=== PATIENT | male | born 1965 | race Caucasian/White ===

== ENCOUNTER 2022-02-04 05:47 | Emergency (ER) | payer OTHER, SELFPAY ==
[2022-02-04] VITALS (8 sets, daily range): BP systolic 130–150; BP diastolic 78–92; PULSE 84–107; RESP 18–26; TEMP 36.1–36.9; O2SAT 92–98
--- NOTE | ~2022-02-04 | CT_ITS ---
EXAMINATION: CT abdomen pelvis w con DATE: 02/04/2022 06:41 INDICATION: Surgery complication. Weakness. Bleeding at surgical site. A illness, diaphoresis, nausea and vomiting, abdominal distention TECHNIQUE: Computed tomography (CT) of the abdomen and pelvis was performed with 100 CC Omnipaque 350 intravenous contrast. Automated exposure control and iterative reconstruction technique were employe d. Exam dose: 1647.78 mGy-cm total exam DLP. COMPARISON: 02/04/2022 portable AP chest FINDINGS: Bilateral lower lobe atelectasis. Normal heart size. No pericardial or pleural effusion. There is a moderately prominent amount of high density fluid around the liver and to a lesser extent around the spleen, in addition to the paracolic gutters, likely due to intraperitoneal hemorrhage. Hepatic steatosis. No hepatic, splenic, pancreatic, and adrenal space-occupying mass lesion. Occasion al renal cysts, measuring up to 2 cm on the right. No urinary tract calculus or hydroureteronephrosis . Urinary bladder is unremarkable. Mild prostate enlargement. Normal caliber of the abdominal aorta. No intraperitoneal or retroperitoneal or pelvic mass lesion or adenopathy. Small fat-containing hernias, left greater than right. Mild subcutaneous emphysema and 4.2 x 9.1 cm hematoma in the right anterolateral lower abdominal wall , with attenuation of same as that free fluid in the abdomen. Bowel sutures noted in the ileocecal area and rectosigmoid area. No bowel obstruction is evident. The re is mild intraperitoneal free air and mild subcutaneous emphysema of the abdominal wall, likely due to recent surgery. Diffuse idiopathic skeletal hyperostosis of the thoracic spine. Multilevel degenerative disc disease of the lumbar spine. IMPRESSION: Perihepatic, perisplenic and pericolic free fluid consistent with internal hemorrhage Minimal intraperitoneal free air, mild subcutaneous emphysema of the abdominal wall, likely postopera tive Approximately 4 x 9 cm hematoma of the lower anterior abdominal wall on the right Dr. Noonan telephoned the results on 02/04/2022 at 0835 hours to emergency room physician Dr. Day. Reviewed, dictated and finalized at [facility]. Reviewed, dictated and finalized at [facility]. IMPRESSION: Perihepatic, perisplenic and pericolic free fluid consistent with internal hemorrhage Minimal intraperitoneal free air, mild subcutaneous emphysema of the abdominal wall, likely postoperative Approximately 4 x 9 cm hematoma of the lower anterior abdominal wall on the rig ht Dr. Noonan telephoned the results on 02/04/2022 at 0835 hours to emergency room herberth Day.
--- NOTE | ~2022-02-04 | XR_ITS ---
XR chest 1V portable DATE: 02/04/2022 06:26 INDICATION: Surgery complications TECHNIQUE: Portable supine AP view on 02/04/2022 at 0619 hours COMPARISON: None FINDINGS: Right mid and bilateral lower lung infiltrate and/atelectasis. There is mild elevation of t he right leaf of diaphragm. Normal heart size. Minimal blunting of the costophrenic angles may indicate slight pleural effusions. No pneumothorax. IMPRESSION: Right mid and bilateral lower lung infiltrate and/or atelectasis Reviewed, dictated and finalized at [facility].
--- NOTE | 2022-02-04 05:45 | ECG_ITS ---
Measurements Intervals [place] Rate: 96 P: 27 HI: 128 QRS: 34 QRSD: 108 T: 37 QT: 366 QTc: 464 Interpretive Statements SINUS RHYTHM WITH OCCASIONAL VENTRICULAR PREMATURE COMPLEXES INCOMPLETE RIGHT BUNDLE BRANCH BLOCK NO PREVIOUS ECG AVAILABLE FOR COMPARISON Electronically Signed On 02-04-2022 14:45:05 CDT by Hudson Nguyen M.D.
--- NOTE | 2022-02-04 06:00 | PC.NURSE ---
Spoke to Marine, Manager Advanced ([facility] [phone]) regarding [facility] medical records. She provided me w/phone # and fax # for [facility] medical records. ( Opt1/FAX: [phone]). Spoke to Chitra and provided patient information for medical records and faxed the Release.
--- NOTE | 2022-02-04 06:11 | PC.NURSE ---
Rapid blood infusion started at 0610.
[2022-02-04 06:25] LABS: Basophils Percent Auto 0.1 % (0.2-1.2); Eosinophils Percent Auto 0.1 % (0-4.4); Hematocrit 34.2 % (42.0-52.0); Hemoglobin 11.4 g/dL (14.0-18.0); Immature Granulocyte Percent A 0.5 % (0-0.5); Lymphocytes Absolute Auto 2.18 K/mm3 (0.9-3.2); Lymphocytes Percent Auto 11.9 % (18.3-44.2); Mean Corpuscular HGB Conc 33.3 g/dl (32-36); Mean Corpuscular Hemoglobin 30.6 pg (26-34); Mean Corpuscular Volume 91.9 fl (80-100); Mean Platelet Volume 10.5 fl (7.4-10.4); Monocytes Percent Auto 5.7 % (2.6-8.5); Neutrophils Percent Auto 81.7 % (45.5-73.1); Platelet Count Result 344 k/mm3 (150-375); Red Blood Count 3.72 M/mm3 (4.6-6.20); White Blood Count 18.4 K/mm3 (4.5-10.0)
[2022-02-04 06:36] LABS: INR 1.2; Prothrombin Time 14.3 Seconds (11.1-14.7)
[2022-02-04 06:37] LABS: Partial Thromboplastin Time 23.2 SECONDS (22.3-36.8)
[2022-02-04 06:53] LABS: Alanine Aminotransferase 28 U/L (6-50); Albumin Level 3.9 g/dL (3.5-5.1); Alkaline Phosphatase 51 U/L (38-126); Anion Gap 15 mmol/L (8-16); Aspartate Amino Transferase 26 U/L (17-59); Blood Urea Nitrogen 21 mg/dL (9-20); Calcium 8.3 mg/dL (8.4-10.2); Carbon Dioxide 18 mmol/L (22-30); Chloride 99 mmol/L (98-107); Estimated CRCL calculation 92 ml/min; Estimated Glomerular Filt Rate > 60; Glucose 218 mg/dL (65-110); Potassium 4.1 mmol/L (3.4-5.0); Sodium 132 mmol/L (137-145)
--- NOTE | 2022-02-04 07:35 | PC.NURSE ---
report received at this time. per surgery, sandbag will be placed on patient's surgical site for bleeding control. patient will be tranferred to [place], where patient had surgery. patient remains on manager filter. sandbag applied to right ABD.
[2022-02-04] MEDS: fentaNYL CITRATE INJ (*CRX) 100 MCG/2 ML VIAL 50 MCG IV PUSH (08:26)
--- NOTE | 2022-02-04 08:32 | ED.GENADULT ---
HPI - General Adult General Chief complaint: Unspecified Stated complaint: GI Bleed Related Data Allergies Allergy/AdvReac Type Severity Reaction Status Date / Time Penicillins Allergy Hives Verified 02/04/22 05:47 Course Vital Signs Vital signs: Vital Signs Temperature 36.4 C L 02/04/22 05:41 Pulse Rate 102 H 02/04/22 05:41 Respiratory Rate 24 H 02/04/22 05:41 Blood Pressure 141/92 H 02/04/22 05:41 Pulse Oximetry 94 02/04/22 05:41 Oxygen Delivery Room Air 02/04/22 05:41 Temperature 36.9 C 02/04/22 06:21 Pulse Rate 95 02/04/22 06:21 Respiratory Rate 18 02/04/22 06:21 Blood Pressure 145/78 H 02/04/22 06:21 Pulse Oximetry 94 02/04/22 06:21 Oxygen Delivery Nasal Cannula 02/04/22 05:56 Oxygen Flow Rate 3 02/04/22 05:56 Medical Decision Making Vital Signs Vital Signs: Vital Signs Temperature 36.4 C L 02/04/22 05:41 Pulse Rate 102 H 02/04/22 05:41 Respiratory Rate 24 H 02/04/22 05:41 Blood Pressure 141/92 H 02/04/22 05:41 Pulse Oximetry 94 02/04/22 05:41 Oxygen Delivery Room Air 02/04/22 05:41 Temperature 36.9 C 02/04/22 06:21 Pulse Rate 95 02/04/22 06:21 Respiratory Rate 18 02/04/22 06:21 Blood Pressure 145/78 H 02/04/22 06:21 Pulse Oximetry 94 02/04/22 06:21 Oxygen Delivery Nasal Cannula 02/04/22 05:56 Oxygen Flow Rate 3 02/04/22 05:56 Lab Data Result diagrams: 02/04/22 05:51 02/04/22 05:51 Labs: Lab Results 02/04/22 02/04/22 02/04/22 Range/Units 05:51 05:51 05:51 WBC 18.4 H (4.5-10.0) K/mm3 RBC 3.72 L (4.6-6.20) M/mm3 Hgb 11.4 L (14.0-18.0) g/dL Hct 34.2 L (42.0-52.0) % MCV 91.9 (80-100) fl MCH 30.6 (26-34) pg MCHC 33.3 (32-36) g/dl RDW 13.0 (11.5-14.5) % Plt Count 344 (150-375) k/mm3 MPV 10.5 H (7.4-10.4) fl Immature Gran % (Auto) 0.5 (0-0.5) % Neut % (Auto) 81.7 H (45.5-73.1) % Lymph % (Auto) 11.9 L (18.3-44.2) % Wright % (Auto) 5.7 (2.6-8.5) % Eos % (Auto) 0.1 (0-4.4) % Baso % (Auto) 0.1 L (0.2-1.2) % Lymph # (Auto) 2.18 (0.9-3.2) K/mm3 Wright # (Auto) 1.0 H (0.1-0.6) K/mm3 Eos # (Auto) 0.0 (0-0.3) K/mm3 Baso # (Auto) 0.0 (0.0-0.1) K/mm3 Abs Immat Gran (auto) 0.10 H (0.00-0.031) K/mm3 Absolute Neuts (auto) 15.0 H (1.3-6.7) K/mm3 Absolute Nucleated RBC 0.0 (0.0-0.012) K/mm3 Nucleated RBC % 0.0 (0.0-0.2) % PT 14.3 (11.1-14.7) Seconds INR 1.2 APTT 23.2 (22.3-36.8) SECONDS Sodium 132 L (137-145) mmol/L Potassium 4.1 (3.4-5.0) mmol/L Chloride 99 (98-107) mmol/L Carbon Dioxide 18 L (22-30) mmol/L Anion Gap 15 (8-16) mmol/L BUN 21 H (9-20) mg/dL Creatinine 1.10 (0.7-1.3) mg/dL Estim Creat Clear Calc 92 ml/min Estimated GFR > 60 (59 - ) Glucose 218 H (65-110) mg/dL Calcium 8.3 L (8.4-10.2) mg/dL Total Bilirubin 1.0 (0.2-1.3) mg/dL AST 26 (17-59) U/L ALT 28 (6-50) U/L Alkaline Phosphatase 51 (38-126) U/L Total Protein 7.0 (6.3-8.2) g/dL Albumin 3.9 (3.5-5.1) g/dL Blood Type Antibody Screen Crossmatch 02/04/22 Range/Units 05:51 WBC (4.5-10.0) K/mm3 RBC (4.6-6.20) M/mm3 Hgb (14.0-18.0) g/dL Hct (42.0-52.0) % MCV (80-100) fl MCH (26-34) pg MCHC (32-36) g/dl RDW (11.5-14.5) % Plt Count (150-375) k/mm3 MPV (7.4-10.4) fl Immature Gran % (Auto) (0-0.5) % Neut % (Auto) (45.5-73.1) % Lymph % (Auto) (18.3-44.2) % Wright % (Auto) (2.6-8.5) % Eos % (Auto) (0-4.4) % Baso % (Auto) (0.2-1.2) % Lymph # (Auto) (0.9-3.2) K/mm3 Wright # (Auto) (0.1-0.6) K/mm3 Eos # (Auto) (0-0.3) K/mm3 Baso # (Auto) (0.0-0.1) K/mm3 Abs Immat Gran (auto) (0.00-0.031) K/mm3 Absolute Neuts (auto) (1.3-6.7) K/mm3 Absolute Nucleated RBC (0.0-0.012) K/mm3 Nucleated RBC % (0.0-0.2) % PT (11.1-14.7) Seconds INR
--- NOTE | 2022-02-04 08:34 | PM.CNGS ---
Assessment and Plan Assessment and plan (1) Intra abdominal hemorrhage: Code(s): R58 - Hemorrhage, not elsewhere classified Status: Acute Assessment and Plan: I reviewed the CT. There does appear to be some blood predominantly up near the liver. This is likely postoperative in nature and could be related to patient coughing significantly postoperatively. He appears hemodynamically stable after transfusion of 1 unit packed red blood cells. A recommended applying pressure to the right lower quadrant as this may help with hemostasis of abdominal wall bleeding. I reviewed the operative report, but I am somewhat limited based on not knowing what truly happened during the surgery. It would be safest to have patient transferred back to facility where surgery was performed. If he shows any instability while being monitored here, would have to consider emergent surgical exploration prior to transfer. Will await update from ED physician on transfer disposition. (2) Near syncope: Code(s): R55 - Syncope and collapse Status: Acute History of Present Illness Consult details Consult date: 02/04/22 Reason for consult: other (Intra-abdominal bleeding) Requesting physician: Srinath Day MD Narrative: This is a 56-year-old man who I am asked to see emergently for intra-abdominal bleeding. Was called at 5:40 a.m. this morning with brief description of patient's presenting symptoms. He apparently was brought into the emergency department for weakness and lightheadedness. He had undergone a laparoscopic hernia repair in [facility] yesterday. This was done as an outpatient surgery and patient lives in [facility]. He was near syncopal and diaphoretic and appeared very pale. The ED physician performed a bedside ultrasound and suspected intra-abdominal bleeding therefore asks me to come evaluate the patient emergently for possible need for emergent surgery. I arrived to evaluate the patient and his was available for questioning. Patient is awake and alert and able to answer questions as well. He underwent a laparoscopic hernia repair and was discharged home yesterday. The patient lives in [facility] and was becoming anxious therefore the decided to drive him around because she says that that is what he likes to do when he is anxious typically. They were down in this area and therefore came to our emergency department instead of driving back towards the hospital where he had surgery. The patient has a history of colon cancer and had undergone colectomy with loop ileostomy about 6 or 8 years ago. He then had the ileostomy taken down and subsequently developed a hernia at the ostomy site. Surgical records are now available from [place] and I reviewed the records and surgery reported extensive adhesions but reported minimal blood loss with procedure. Patient has been coughing a lot since surgery. He denies any prior history of bleeding problems in the past. He denies requiring blood transfusions with past surgeries. He is having some pain in the right lower quadrant where the hernia was, but denies any other significant pain elsewhere at this time. Review of Systems Review of Systems: All systems reviewed & are unremarkable except as noted in HPI and below Constitutional: Constitutional: Denies chills and Denies fever(s) Cardiovascular: Cardiovascular: Denies chest pain and Denies dyspnea Respiratory: Respiratory: Denies dyspnea Gastrointestinal: Gastrointestinal: Reports as per HPI [facility] Past Medical History Medical History (Updated 02/04/22 @ 08:47 by Eliazar Miller DO) History of colon cancer Surgical History Surgical History (Updated 02/04/22 @ 08:47 by Eliazar Miller DO) History of partial colectomy S/P laparoscopic hernia repair Social History Social History (Updated 02/04/22 @ 08:43 by Eliazar Miller DO) Alcohol intake: current Drinks per week: 28 Alc
--- NOTE | 2022-02-04 09:03 | ED.GENADULT ---
HPI - General Adult General Chief complaint: Unspecified Stated complaint: GI Bleed History of Present Illness HPI narrative: This is a 56-year-old male who underwent robotic hernia surgery repair at an outside hospital yesterday. Patient was discharged home but was noted to have increased pain on his right side. He noted swelling and leaking blood from his incision sites. He then came to the hospital. The patient was being wheeled in by EMS when he had increased bleeding from the site and had a syncopal event. Two large-bore IVs were started the patient was transfused 2 units of packed red blood cells. Consult was placed to the on-call surgeon. Lab work and CT abdomen pelvis were ordered. CT abdomen pelvis showed a subcutaneous hematoma as well as blood around the liver. The case was discussed with surgery and they believe that he is now stable enough to be transferred back to [facility] where he underwent his original surgery. The patient will be transferred via [facility] ambulance. Related Data Allergies Allergy/AdvReac Type Severity Reaction Status Date / Time Penicillins Allergy Hives Verified 02/04/22 05:47 Review of Systems Review of Systems: CONSTITUTIONAL: Denies night sweats. EYES: No eye pain ENT: Denies rhinorrhea CARDIOVASCULAR: Denies palpitations RESPIRATORY: Denies hemoptysis GASTROINTESTINAL: Denies hematemesis GENITOURINARY: Denies hematuria. SKIN: Denies rash MUSCULOSKELETAL: Denies myalgia. NEUROLOGIC: Denies weakness. PSYCHIATRIC: Denies delusions PMF Past Medical History Medical History (Updated 02/04/22 @ 09:11 by Srinath Day MD) History of colon cancer Surgical History Surgical History (Updated 02/04/22 @ 09:11 by Srinath Day MD) History of partial colectomy S/P laparoscopic hernia repair Social History Social History (Updated 02/04/22 @ 08:43 by Eliazar Miller DO) Alcohol intake: current Drinks per week: 28 Alcohol use details: 4 beers daily Exam Narrative: APPEARANCE: Patient is ashen and laying limp in the bed Head atraumatic. EYES: PERRLA/EOMI, NOSE: Normal no drainage NECK: Supple, Trachea midline RESPIRATORY: CTAB, No increased work of breathing. CARDIOVASCULAR: S1S2 appreciated ABDOMINAL: Abdomen is distended with bruising over the right side of the abdomen. There are multiple laparoscopic surgical sites that are oozing blood. Point of care ultrasound revealed free fluid around the patient's liver. MUSCULOSKELETAl: No obvious deformities NEURO: Alert. Moving 4/4 extremities SKIN:: pale and clammy, diaphoretic PSYCHIATRIC: Normal affect Course Vital Signs Vital signs: Vital Signs Temperature 97.5 F L 02/04/22 05:41 Pulse Rate 102 H 02/04/22 05:41 Respiratory Rate 24 H 02/04/22 05:41 Blood Pressure 141/92 H 02/04/22 05:41 Pulse Oximetry 94 02/04/22 05:41 Oxygen Delivery Room Air 02/04/22 05:41 Temperature 98.4 F 02/04/22 06:21 Pulse Rate 95 02/04/22 06:21 Respiratory Rate 18 02/04/22 06:21 Blood Pressure 145/78 H 02/04/22 06:21 Pulse Oximetry 94 02/04/22 06:21 Oxygen Delivery Nasal Cannula 02/04/22 05:56 Oxygen Flow Rate 3 02/04/22 05:56 Medical Decision Making MDM Narrative Medical decision making narrative: This is a 56-year-old male presenting with a postop complication of bleeding. Patient was in extremis when he 1st arrived and was transfused several units of blood which improved his condition. CT of the abdomen/pelvis revealed a subcutaneous hematoma as well as blood around the liver. On re-evaluation the patient's color and vital signs have both improved. At this time the patient is stable for transport to his original hospital. Patient was accepted by Dr. Wall and will be transferred via [facility] ambulance. Vital Signs Vital Signs: Vital Signs Temperature 97.5 F L 02/04/22 05:41 Pulse Rate 102 H 02/04/22 05:41 Respiratory Rate 24 H 02/04/22 05:41
== END 2022-02-04 10:50 | disposition short-term general hospital (02) ==
PROVIDERS: Emergency Provider Emergency Medicine
DX: K91.840 Postprocedural hemorrhage of a digestive system organ or structure following a digestive system procedure (principal); R55 Syncope and collapse; Z85.038 Personal history of other malignant neoplasm of large intestine
CPT/HCPCS: 36415; 36430; 71045; 74177; 80053; 85025; 85610; 85730; 86850; 86900; 86901; 86920; 93005; 96374; 99285; J3010; J7040; P9016; Q9967